=== PATIENT | male | born 1950 | race Caucasian/White ===

== ENCOUNTER → 2022-02-11 07:09 | Outpatient (CLI) | payer MEDICARE, SELFPAY ==
--- NOTE | ~2022-02-11 | XR_ITS ---
XR chest 2V DATE: 02/11/2022 07:27 INDICATION: Chest pain TECHNIQUE: PA and lateral views COMPARISON: 08/16/2006 portable AP chest FINDINGS: Normal heart size. No hilar or mediastinal enlargement. No pulmonary infiltrate or consolid ation, pleural effusion or pulmonary vascular congestion or pneumothorax. Double density at the lower left retrocardiac area, possibly due to hiatal hernia. Degenerative spurring of the thoracic spine. IMPRESSION: No active cardiopulmonary disease Reviewed, dictated and finalized at location A.
== END ==
PROVIDERS: PCP Family Medicine; Visit Provider Family Medicine
DX: R07.9 Chest pain, unspecified (principal)
CPT/HCPCS: 71046

== ENCOUNTER 2023-04-27 10:27 | Outpatient (CLI) | payer MEDICARE, SELFPAY | END 2023-04-27 10:28 | disposition home or self-care (01) | PROVIDERS: PCP Emergency Medicine; Visit Provider Emergency Medicine | DX: Z79.899 Other long term (current) drug therapy (principal) | CPT/HCPCS: 36415; 82607 ==

== ENCOUNTER → 2023-04-27 10:36 | Outpatient (CLI) | payer MEDICARE, SELFPAY ==
--- NOTE | ~2023-04-27 | XR_ITS ---
Left Knee Technique: AP, lateral, and sunrise views were obtained. Clinical History: Swelling Findings: No fracture or dislocation is seen. Osseous alignment is anatomic. Joint spaces are preserv ed. There are multiple loose bodies in the suprapatellar region.. Possible small joint effusion and/o r thickening of the distal quadriceps tendon, with possible enthesopathic change. There is mild degen erative change of the patellofemoral compartment. Impression: Multiple probable loose bodies at the suprapatellar pouch region with small joint effusion and/or thi ckening of the distal quadriceps tendon. Mild degenerative change of the patellofemoral compartment. Reviewed, dictated and finalized at location . Impression: Multiple probable loose bodies at the suprapatellar pouch region with small crystal nt effusion and/or thickening of the distal quadriceps tendon. Mild degenerative change of the patellofemoral compartment.
--- NOTE | ~2023-04-27 | XR_ITS ---
Right Knee Technique: AP, lateral, and sunrise views were obtained. Clinical History: Swelling Findings: No fracture or dislocation is seen. Osseous alignment is anatomic. Suggestion of multiple l oose bodies in the suprapatellar region versus possibly bipartite patella. There is probable thickeni ng of the distal quadriceps tendon. There is minimal degenerative change of the patellofemoral compar tment. No joint effusion is seen. Impression: Probable multiple loose bodies in the suprapatellar region with thickening of the distal quadriceps t endon and minimal degenerative change of the patellofemoral compartment. Bipartite patella is less likely given the overall appearance. Reviewed, dictated and finalized at location M. Impression: Probable multiple loose bodies in the suprapatellar region with thickening of t he distal quadriceps tendon and minimal degenerative change of the patellofemor al compartment. Bipartite patella is less likely given the overall appearance.
== END ==
PROVIDERS: PCP Emergency Medicine; Visit Provider Emergency Medicine
DX: M79.89 Other specified soft tissue disorders (principal); M25.561 Pain in right knee; M25.562 Pain in left knee
CPT/HCPCS: 73564

== ENCOUNTER → 2023-05-07 13:39 | Outpatient (CLI) | payer MEDICARE, SELFPAY ==
--- NOTE | ~2023-05-07 | MR_ITS ---
EXAMINATION: MR knee RT wo/w con DATE: 05/07/2023 15:34 INDICATION: Right knee pain and prior repair of a torn quadriceps tendon. TECHNIQUE: Magnetic resonance imaging (MRI) of the right knee was performed without intravenous contr ast. Sequences included coronal PD-weighted FSE, coronal PD-weighted FS FSE, sagittal T2-weighted FS E, sagittal PD-weighted FS FSE, axial PD weighted FS FSE, axial T1-weighted FSE, axial T1-weighted FS FSE and postcontrast axial, sagittal and coronal T1-weighted FS FSE. COMPARISON: None. FINDINGS: Medial compartment: Medial meniscus is normal. Deep chondral fissuring with underlying cortical irregularity and subartic ular edema-like marrow signal change and enhancement at the lateral side of the anterior weightbearin g medial femoral condyle. Remaining cartilage in the medial compartment is normal. Lateral compartment: Lateral meniscus is normal. Articular cartilage is normal. Patellofemoral compartment: Partial thickness chondral ulceration and deep fissuring with underlying cortical irregularity and ed isaias-like and enhancing marrow signal change extending across the cephalad aspect of the lateral troch saurav. Near full-thickness chondral fissure without degenerative subchondral changes extending obliquel y across the cartilage at the central aspect of the apical ridge. Less severe partial thickness chond ral fissuring without degenerative subchondral changes along the cephalad aspect of the medial and la teral patellar facets. Ligaments and tendons: Anterior and posterior cruciate ligaments are normal. The medial collateral ligament and fibular corry ateral ligament complex are normal. Mild proximal patellar tendinopathy without discrete tear. Postop erative change at the patella and distal quadriceps tendon consistent with reported history of prior quadriceps tendon tear and subsequent repair. Small amount of heterotopic patellar bone formation at the entry sites of suture anchor tracks extending from proximal to distal across the patella. Additio nal heterotopic ossification is seen situated between the suprapatellar pouch in the deep margin of t he distal quadriceps tendon. Moderate tendinopathy of the distal quadriceps tendon which appears thic kened and with some disorganization of the normally well-defined striated pattern to the tendon fiber s. The repair however appears intact with no evident fluid signal intensity tear defect or retracted tear margin. The visualized medial and lateral hamstring tendons as well as the iliotibial band are normal. Fluid: Physiologic amount of fluid in the joint space. No loose osteochondral bodies identified. Osseous/other: Bone alignment is normal. No fracture or pathologic marrow replacing process. IMPRESSION: 1. Moderate quadriceps tendinopathy with intact appearing repair of a reported quadriceps tendon tear at its patellar insertion. 2. Mild medial and patellofemoral osteoarthritis, each with regions of high-grade chondromalacia. Reviewed, dictated and finalized at location A. IMPRESSION: 1. Moderate quadriceps tendinopathy with intact appearing repair of a reported quadriceps tendon tear at its patellar insertion. 2. Mild medial and patellofemoral osteoarthritis, each with regions of high-gra de chondromalacia.
--- NOTE | ~2023-05-07 | MR_ITS ---
EXAMINATION: MR knee LT wo/w con DATE: 05/07/2023 15:34 INDICATION: Left knee pain and prior quadriceps tendon rupture and repair. TECHNIQUE: Magnetic resonance imaging (MRI) of the left knee was performed without intravenous contra st. Sequences included coronal PD-weighted FSE, coronal PD-weighted FS FSE, sagittal T2-weighted FSE , sagittal PD-weighted FS FSE, axial PD weighted FS FSE, axial T1-weighted FSE, axial T1-weighted FS FSE and postcontrast axial, sagittal and coronal T1-weighted FS FSE. COMPARISON: Left knee radiographs dated 04/27/2023 FINDINGS: Medial compartment: Medial meniscus is normal. Deep chondral fissuring with underlying cortical irregularity and subartic ular edema-like marrow signal change and enhancement at the lateral side of the anterior weightbearin g medial femoral condyle. The remaining cartilage in the medial compartment is normal. Lateral compartment: Lateral meniscus is normal. Articular cartilage is normal. Patellofemoral compartment: Partial thickness chondral ulceration and deep fissuring with underlying subarticular cystlike and ed isaias-like and enhancing marrow signal change at the superolateral aspect of the lateral trochlea. Ther e is partial thickness chondral fissuring without degenerative subchondral changes along the cephalad aspect of the medial and lateral patellar facets. Ligaments and tendons: Anterior and posterior cruciate ligaments are normal. The medial collateral ligament and fibular corry ateral ligament complex are normal. Mild tendinopathy without discrete tear at the medial side of the proximal patellar tendon. Postoperative change at the patella and distal quadriceps tendon consisten t with reported history of prior quadriceps tendon tear and subsequent repair. Small amount of hetero topic patellar bone formation at the entry sites of suture anchor tracks extending from proximal to d istal across the patella. Moderate tendinopathy of the distal quadriceps tendon which appears thicken ed and with some disorganization of the normally well-defined striated pattern to the tendon fibers. The repair however appears intact with no evident fluid signal intensity tear defect or retracted tea r margin. Some additional heterotopic ossification within the vastus lateralis contribution to the te ndon. The visualized medial and lateral hamstring tendons as well as the iliotibial band are normal. Fluid: Physiologic amount of fluid in the joint space. No loose osteochondral bodies identified. Osseous/other: Bone alignment is normal. No fracture or pathologic marrow replacing process. IMPRESSION: 1. Moderate quadriceps tendinopathy with intact appearing repair of a reported quadriceps tendon tear at its patellar insertion. 2. Mild medial and patellofemoral osteoarthritis, each with regions of high-grade chondromalacia. Reviewed, dictated and finalized at location A. IMPRESSION: 1. Moderate quadriceps tendinopathy with intact appearing repair of a reported quadriceps tendon tear at its patellar insertion. 2. Mild medial and patellofemoral osteoarthritis, each with regions of high-gra de chondromalacia.
== END ==
PROVIDERS: PCP Emergency Medicine; Visit Provider Emergency Medicine
DX: M23.41 Loose body in knee, right knee (principal); M23.42 Loose body in knee, left knee; M17.0 Bilateral primary osteoarthritis of knee
CPT/HCPCS: 73723; A9577

== ENCOUNTER 2023-10-23 08:14 | Outpatient (CLI) | payer MEDICARE, SELFPAY ==
--- NOTE | ~2023-10-23 | US_ITS ---
EXAMINATION: US arterial ankle brachial ind DATE: 10/23/2023 09:05 INDICATION: Other specified symptoms and signs involving the circulatory system. Cold toes. Lower hanks b pain and swelling. TECHNIQUE: Segmental pressures and plethysmographic and Doppler waveforms of the brachial and lower e xtremity arteries were obtained. COMPARISON: None. FINDINGS: Right and left brachial artery pressures of 133 mm Hg and 125 mm Hg, respectively, are concordant (no rmal difference <= 30 mmHg). The right ankle-brachial index (NATHANAEL) is 1.24 (normal >= 0.9-1.0). The right great toe-brachial index (TBI) is 0.96 (normal >= 0.65). Arterial Doppler waveforms are biphasic with brisk systolic upstrokes at both right posterior tibial and dorsalis pedis arteries. The left NATHANAEL is 1.21. The left TBI is 0.77. Arterial Doppler waveforms are biphasic with brisk systol ic upstrokes at both left posterior tibial and dorsalis pedis arteries. IMPRESSION: 1. No significant arterial occlusive disease to the bilateral lower limbs with normal bilateral ABIs and TBIs. Reviewed, dictated and finalized at location A. Y BACTERIOLOGIST
== END 2023-10-23 08:15 | disposition home or self-care (01) ==
LOC: ANHIMG 08:17
PROVIDERS: PCP Emergency Medicine; Visit Provider Emergency Medicine
DX: R09.89 Other specified symptoms and signs involving the circulatory and respiratory systems (principal)
CPT/HCPCS: 93922

== ENCOUNTER 2023-11-18 08:45 | Outpatient (CLI) | payer MEDICARE, SELFPAY ==
--- NOTE | 2023-11-18 11:30 | NEURO_ITS ---
Impression: # Non-diabetic complains of numbness and weakness in lower extremities. History of neck and lower back surgery. # Severe motor/sensory neuropathy. # Needle/EMG exam revealed significant neurogenic changes in the muscles. # Clinical correlation recommended. Nerve Conduction Studies Anti Sensory Summary Table Stim Site NR Peak (ms) P-T Amp (?V) Site1 Site2 Delta-P (ms) Dist (cm) Jean (m/s) Left Saphenous Anti Sensory (Ant Med Mall) NO RESPONSE 14cm NR 14cm Ant Med Mall 0.0 Right Saphenous Anti Sensory (Ant Med Mall) NO RESPONSE 14cm NR 14cm Ant Med Mall 0.0 Left Sup Fibular Anti Sensory (Ant Lat Mall) NO RESPONSE 14 cm NR 14 cm Ant Lat Mall 16.0 Right Sup Fibular Anti Sensory (Ant Lat Mall) NO RESPONSE 14 cm NR 14 cm Ant Lat Mall 16.0 Left Sural Anti Sensory (Lat Mall) NO RESPONSE Calf NR Calf Lat Mall 16.0 Right Sural Anti Sensory (Lat Mall) NO RESPONSE Calf NR Calf Lat Mall 16.0 Motor Summary Table Stim Site NR Onset (ms) O-P Amp (mV) Site1 Site2 Delta-0 (ms) Dist (cm) Jean (m/s) Left Peroneal Motor (Vastus Med) Ankle 4.5 0.6 Popit Ankle 12.5 44.0 35 Popit 17.0 1.0 Right Peroneal Motor (Vastus Med) Ankle 4.6 0.8 Popit Ankle 12.0 40.0 33 Popit 16.6 0.6 Left Tibial Motor (Abd Eduardo Brev) Ankle 5.2 0.1 Knee Ankle 12.3 42.0 34 Knee 17.5 0.1 Right Tibial Motor (Abd Eduardo Brev) NO RESPONSE Ankle NR Knee NR F Wave Studies NR F-Lat (ms) L-R F-Lat (ms) Left Peroneal (Mrkrs) (EDB) NO RESPONSE NR Right Peroneal (Mrkrs) (EDB) 68.30 Left Tibial (Mrkrs) (Abd Hallucis) NO RESPONSE NR Right Tibial (Mrkrs) (Abd Hallucis) NO RESPONSE NR EMG Side Muscle Nerve Root Ins Act Fibs Amp Dur Recrt Comment Right AntTibialis Dp Br Fibular L4-5 Nml Nml Nml >12ms +3 Right Gastroc Tibial S1-2 Nml Nml Nml >12ms +3 Right Fibularis Long Sup Br Fibular L5-S1 Nml Nml Nml >12ms +3 Right Flex Dig Long Tibial L5-S2 Nml Nml Nml >12ms +3 Right Ext Dig Brev Dp Br Fibular L5, S1 Nml Nml Nml >12ms +4 Left AntTibialis Dp Br Fibular L4-5 Nml Nml Nml >12ms +3 Left Gastroc Tibial S1-2 Nml Nml Nml >12ms +3 Left Fibularis Long Sup Br Fibular L5-S1 Nml Nml Nml >12ms +3 Left Flex Dig Long Tibial L5-S2 Nml Nml Nml >12ms +3 Left Ext Dig Brev Dp Br Fibular L5, S1 Nml Nml Nml >12ms +4 Right Ext Dig Long Dp Br Fibular L5-S1 Nml Nml Nml >12ms +3 Left Ext Dig Long Dp Br Fibular L5-S1 Nml Nml Nml >12ms +3 MTDD
== END 2023-11-18 08:46 | disposition home or self-care (01) ==
LOC: ANHNEURO 08:49
PROVIDERS: PCP Emergency Medicine; Visit Provider Emergency Medicine
DX: R20.2 Paresthesia of skin (principal)
CPT/HCPCS: 95886; 95911

== ENCOUNTER 2023-11-26 07:49 | Outpatient (CLI) | payer MEDICARE, SELFPAY ==
--- NOTE | ~2023-11-26 | MR_ITS ---
EXAMINATION: MR lumbar spine wo con DATE: 11/26/2023 08:22 INDICATION: Polyneuropathy, unspecified. Low back pain. TECHNIQUE: Magnetic resonance imaging (MRI) of the lumbar spine was performed without intravenous con trast. COMPARISON: Lumbar spine MRI 04/10/2018 FINDINGS: S1 is a transitional segment. There is 7 degrees dextrocurvature of lower lumbar spine. The re is mild chronic anterior wedging of T12, L1, and L2 vertebral bodies. There are changes of posteri or fusion procedure from L4 to S1 with pedicle screws. There is mildly decreased disc height at L2-L3 and L3-L4. There is severely decreased disc height at L4-L5 and L5-S1 with interbody fusion. The dis pankaj spinal cord signal intensity is normal. The conus medullaris is at L1-L2. The following disc leve ls are specifically discussed: L1-L2: The disc is bulging. There is mild bilateral facet joint osteoarthritis. There is mild bilater al neural foraminal stenosis. There is mild central canal stenosis. L2-L3: The disc is bulging and has an annular fissure. There is severe bilateral facet joint osteoart hritis. There is mild bilateral neural foraminal stenosis. There is mild central canal stenosis. L3-L4: The disc is bulging. There is moderate bilateral facet joint osteoarthritis. There is moderate bilateral neural foraminal stenosis. There is severe central canal stenosis. L4-L5: The disc does not extend beyond the endplate margin. There is moderate bilateral facet joint h ypertrophy. There is moderate bilateral neural foraminal stenosis. There is no central canal stenosis . L5-S1: The disc is bulging. There is moderate bilateral facet joint hypertrophy. There is moderate ri ght and mild left neural foraminal stenosis. There is mild central canal stenosis with posterior deco mpression. IMPRESSION: 1. Moderate lumbar spondylosis. 2. Posterior fusion procedure from L4 to S1. Reviewed, dictated and finalized at location A.
== END 2023-11-26 07:50 ==
LOC: MICIMG 07:50
PROVIDERS: PCP Emergency Medicine; Visit Provider Emergency Medicine
DX: M43.06 Spondylolysis, lumbar region (principal); Z98.1 Arthrodesis status
CPT/HCPCS: 72148

== ENCOUNTER 2023-12-03 07:13 | Day surgery (SDC) | payer MEDICARE, SELFPAY ==
[2023-11-03 10:58] VITALS: BMI 29.4
[2023-11-17 08:40] VITALS: BMI 28.6
[2023-12-03 07:48] VITALS: BP 132/85; PULSE 63; RESP 14; TEMP 36.7; O2SAT 98
[2023-12-03] MEDS: LACTATED RINGERS 1,000 ML 150 ML IV CONT (07:53)
[2023-12-03 07:55] LABS: Glucose Point of Care 110 mg/dl (65-105)
--- NOTE | 2023-12-03 08:09 | PM.HPGS ---
History of Present Illness History of Present Illness Consent: Risks, benefits, and alternatives have been discussed and questions answered. Patient agrees to proceed with procedure. Chief complaint: Neoplasm Screening Narrative: Marbin Balderrama is a 73 year old male presents for screening colonoscopy. Patient's current weight appetite and bowel movements are normal. He denies abdominal pain. Patient has had no bleeding. Family history is noncontributory. Previous colonoscopy 10 years ago was unremarkable. Review of Systems Review of Systems: All systems reviewed & are unremarkable except as noted in HPI and below PMFSH Past Medical History Medical History (Updated 12/03/23 @ 08:11 by Carlo Lee MD) Low back pain Surgical History Surgical History H/O spinal fusion Family History Family History Father Family history of type 2 diabetes mellitus Other Family history of malignant neoplasm of stomach Social History Social History Smoking status: Never smoker Alcohol intake: never Substance use: never Substance use type: does not use Lack of Transportation: No Lack of Food: Never True Current Housing: I Have Housing Concerned About Future Housing: No Difficulty Paying Gas/Electric Bills: No Difficulty Paying for Meds: No Currently Unemployed: No Education: Associate Degree Difficulty w/ Childcare or Family Care: No Living arrangements: with family Spiritual care concerns: No Meds Home Medications and Allergies Home Medications Medication Instructions Recorded Confirmed Type metformin 500 mg tablet 500 mg PO DAILY 07/27/19 12/03/23 History famotidine 20 mg tablet 20 mg PO DAILY #90 tabs 10/15/21 12/03/23 Rx sildenafil 50 mg tablet (Viagra) 50 mg PO DAILY PRN sexual activity 04/27/23 12/03/23 Rx #30 tabs simvastatin 20 mg tablet See Rx Instructions .Route 08/12/23 12/03/23 Rx .COMPLEX #90 tabs irbesartan 75 mg tablet 75 mg PO DAILY #90 tabs 09/01/23 12/03/23 Rx topiramate 25 mg tablet See Rx Instructions .Route 09/11/23 12/03/23 Rx .COMPLEX #180 tabs cranberry extract 500 mg tablet 500 mg PO BID 10/20/23 12/03/23 History melatonin 10 mg capsule 10 mg PO QHS 10/20/23 12/03/23 History saw palmetto 450 mg capsule 450 mg PO BID 10/20/23 12/03/23 History cyanocobalamin (vitamin B-12) 2,000 mcg PO DAILY 11/17/23 12/03/23 History 2,000 mcg tablet pyridoxine (vitamin B6) 100 mg 300 mg PO DAILY 11/17/23 12/03/23 History tablet Allergies Allergy/AdvReac Type Severity Reaction Status Date / Time No Known Allergies Allergy Mild Verified 12/03/23 07:40 Vital Signs Vital Signs - 24 hr 12/03/23 07:48 Temperature 98.0 F Pulse Rate 63 Respiratory Rate 14 Blood Pressure 132/85 Pulse Oximetry 98 Oxygen Delivery Room Air Exam Narrative: Physical exam reveals patient to be alert. Vital signs stable. HEENT exam is unremarkable. Patient is anicteric. Lungs are clear to auscultation and percussion. Is without murmur or extra sounds. Abdomen bowel sounds are present soft nontender with no organomegaly. Digital external rectal exam is normal. Assessment and Plan Assessment and plan (1) Encounter for screening colonoscopy: Code(s): Z12.11 - Encounter for screening for malignant neoplasm of colon Status: Acute Assessment and Plan: Patient presents today for screening colonoscopy. He appears to be at average risk for colon polyps.
--- NOTE | 2023-12-03 08:15 | WPDANESEPPF ---
Anes - Initial Pre Proc Eval Procedure: Operation Date: 12/03/23 09:00 Proposed Procedures p Screening Colonoscopy - Carlo Lee MD Date/Time: 12/03/23 08:15 Surgeon: Carlo Lee MD Pre Op Diagnosis: Neoplasm Screening Patient Data Age: 73 Gender: M Height: 1.78 m Weight: 92.25 kg Last Vital Signs Temp 36.7 C 12/03/23 07:48 Pulse 63 12/03/23 07:48 Resp 14 12/03/23 07:48 BP 132/85 12/03/23 07:48 Pulse Ox 98 12/03/23 07:48 O2 Del Method Room Air 12/03/23 07:48 Allergies Allergy/AdvReac Type Severity Reaction Status Date / Time No Known Allergies Allergy Mild Verified 12/03/23 07:40 Home Medications Medication Instructions Recorded Confirmed Type metformin 500 mg tablet 500 mg PO DAILY 07/27/19 12/03/23 History famotidine 20 mg tablet 20 mg PO DAILY #90 tabs 10/15/21 12/03/23 Rx sildenafil 50 mg tablet (Viagra) 50 mg PO DAILY PRN sexual activity 04/27/23 12/03/23 Rx #30 tabs simvastatin 20 mg tablet See Rx Instructions .Route 08/12/23 12/03/23 Rx .COMPLEX #90 tabs irbesartan 75 mg tablet 75 mg PO DAILY #90 tabs 09/01/23 12/03/23 Rx topiramate 25 mg tablet See Rx Instructions .Route 09/11/23 12/03/23 Rx .COMPLEX #180 tabs cranberry extract 500 mg tablet 500 mg PO BID 10/20/23 12/03/23 History melatonin 10 mg capsule 10 mg PO QHS 10/20/23 12/03/23 History saw palmetto 450 mg capsule 450 mg PO BID 10/20/23 12/03/23 History cyanocobalamin (vitamin B-12) 2,000 mcg PO DAILY 11/17/23 12/03/23 History 2,000 mcg tablet pyridoxine (vitamin B6) 100 mg 300 mg PO DAILY 11/17/23 12/03/23 History tablet Laboratory Tests 12/03/23 07:52 POC Capillary Glucose 110 H mg/dl (65-105) Patient hx anesthesia problems: none Family hx anesthesia problems: none Results Review: All pre-operative results and documents have been reviewed as part of the pre-operative evaluation. [facility] Past Medical History Medical History Low back pain Surgical History Surgical History H/O spinal fusion Family History Family History Father Family history of type 2 diabetes mellitus Other Family history of malignant neoplasm of stomach Social History Social History Smoking status: Never smoker Alcohol intake: never Substance use: never Substance use type: does not use Lack of Transportation: No Lack of Food: Never True Current Housing: I Have Housing Concerned About Future Housing: No Difficulty Paying Gas/Electric Bills: No Difficulty Paying for Meds: No Currently Unemployed: No Education: Associate Degree Difficulty w/ Childcare or Family Care: No Living arrangements: with family Spiritual care concerns: No Anes - Eval Final PreProcedure Day of Procedure 12/03/23 08:15 Patient weight: overweight Heart: regular rate and rhythm Lungs: clear to auscultation Airway: Mallampati scale class II Neurological: alert and oriented Last oral intake: >/= 8 hours ASA classification: III Emergent: no Anesthetic plan: proceed Anesthesia type and monitoring: general GIVS and standard monitoring Results Review: All pre-operative results and documents have been reviewed as part of the pre-operative evaluation. Informed Consent: The patient's anesthetic plan and its attendant risks and benefits were discussed with the patient/family/POA. Questions were solicited and answers provided to the satisfaction of the patient/family/POA.
[2023-12-03 08:58] VITALS: BP 113/95; PULSE 56; RESP 15; O2SAT 95
[2023-12-03 09:08] VITALS: BP 123/73; PULSE 51; RESP 15; O2SAT 99
[2023-12-03 09:18] VITALS: BP 129/85; PULSE 50; RESP 15; O2SAT 99
--- NOTE | 2023-12-03 09:28 | WPDANESPN ---
Anes - Prog Note Post-Op Date/Time: 12/03/23 09:28 Cardiovascular status: normal Respiratory status: normal Airway patency: baseline Mental status: baseline Post-Op hydration status: normal Vital Signs: Last Vital Signs Temp 36.7 C 12/03/23 07:48 Pulse 51 L 12/03/23 09:08 Resp 15 12/03/23 09:08 BP 123/73 12/03/23 09:08 Pulse Ox 99 12/03/23 09:08 O2 Del Method Room Air 12/03/23 09:08 Pain Score (VAS): 0 I/O: Intake & Output 12/02/23 12/03/23 12/03/23 23:59 07:59 15:59 Intake Total 500 Balance 500 12/03/23 07:52 POC Capillary Glucose 110 H Patient Feedback: Patient satisfied with anesthetic care.
== END 2023-12-03 09:43 | disposition home or self-care (01) ==
PROVIDERS: PCP Emergency Medicine; Visit Provider Internal Medicine Gastroenterology
PROC: 0DJD8ZZ Inspection of Lower Intestinal Tract, Via Natural or Artificial Opening Endoscopic (ICD-10-PCS; CPT 45378; principal; 2023-12-03 09:00)
DX: Z12.11 Encounter for screening for malignant neoplasm of colon (principal); D12.3 Benign neoplasm of transverse colon; K57.30 Diverticulosis of large intestine without perforation or abscess without bleeding; K64.8 Other hemorrhoids
CPT/HCPCS: 45385

== ENCOUNTER 2023-12-03 08:09 | Outpatient (NON) | payer MEDICARE, SELFPAY | END 2023-12-03 08:10 | disposition home or self-care (01) | PROVIDERS: PCP Emergency Medicine; Visit Provider Internal Medicine Gastroenterology | DX: Z12.11 Encounter for screening for malignant neoplasm of colon (principal) | CPT/HCPCS: 88305 ==

== ENCOUNTER 2024-02-23 08:56 | Outpatient (CLI) | payer MEDICARE, SELFPAY ==
[2024-02-23 13:37] LABS: Vitamin B12 > 1000.0 pg/mL (239-931)
[2024-02-23 14:07] LABS: Free T4 Free Thyroxine 1.39 ng/mL (0.78-2.19)
[2024-02-24 08:04] LABS: Triiodothyronine T3 Free 3.9 pg/mL (2.3-4.2)
[2024-02-24 11:29] LABS: Protein, Total 6.8 g/dL (6.1-8.1)
[2024-02-24 15:29] LABS: Albumin 4.2 g/dL (3.8-4.8); Alpha 1 Globulin 0.2 g/dL (0.2-0.3); Alpha 2 Globulin 0.7 g/dL (0.5-0.9); Beta 1 Globulin 0.5 g/dL (0.4-0.6); Gamma Globulin 0.8 g/dL (0.8-1.7)
[2024-02-24 22:58] LABS: Red Blood Cell Folate 494 ng/mL RBC (>280)
[2024-02-26 10:53] LABS: Vitamin B6 111.7 ng/mL (2.1-21.7)
[2024-02-26 13:24] LABS: Methylmalonic Acid 137 nmol/L (69-390)
[2024-02-26 15:29] LABS: Vitamin B1 17 nmol/L (8-30)
[2024-02-26 21:43] LABS: Vitamin D 1,25 (OH)2 Total 37 pg/mL (18-72); Vitamin D2 1,25 (OH)2 <8 pg/mL; Vitamin D3 1,25 (OH)2 37 pg/mL
[2024-02-27 20:22] LABS: Immunofixation, Serum Normal pattern.
== END 2024-02-23 08:57 | disposition home or self-care (01) ==
PROVIDERS: PCP Emergency Medicine; Visit Provider Psychiatry & Neurology Neurology
DX: E55.9 Vitamin D deficiency, unspecified (principal); G62.9 Polyneuropathy, unspecified; E74.39 Other disorders of intestinal carbohydrate absorption; Z98.890 Other specified postprocedural states; Z79.899 Other long term (current) drug therapy
CPT/HCPCS: 36415; 82607; 82652; 82747; 83921; 84155; 84165; 84207; 84425; 84439; 84443; 84481; 86038; 86039; 86334

== ENCOUNTER 2024-03-08 09:30 | Outpatient (RCR) | payer MEDICARE, SELFPAY ==
--- NOTE | 2024-02-05 12:39 | OPREHPOC ---
Outpatient Therapy Plan of Care This is a Multidisciplinary Plan of Care that may contain components documented by all disciplines (PT, OT, and ST.) PT Problem 1 PT Problem #1 Knowledge Deficit PT Goal 1 Goal [place] with HEP Target Visit 4 PT Problem 2 PT Problem #2 Impaired Strength PT Goal 1 Goal Improve L shoulder flexion strength to 4+/5 to improve active lifting and ADL performance Target Visit 8 PT Goal 2 Goal Improve L shoulder external rotation strength to 4 +/5 to improve shoulder stability Target Visit 8 PT Goal 1 Goal Demonstrate ability to perform overhead lift of 5# without increased pain for functional lifting performance Target Visit 8
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
--- NOTE | 2024-02-24 09:43 | PCPTNOTE ---
Patient canceled due to being out of town.
--- NOTE | 2024-03-08 10:13 | OPREHPOC ---
Outpatient Therapy Plan of Care This is a Multidisciplinary Plan of Care that may contain components documented by all disciplines (PT, OT, and ST.) PT Problem 1 PT Problem #1 Knowledge Deficit PT Goal 1 Goal [place] with HEP Target Visit 4 Progress Met PT Problem 2 PT Problem #2 Impaired Strength PT Goal 1 Goal Improve L shoulder flexion strength to 4+/5 to improve active lifting and ADL performance Target Visit 8 Progress Partially Met PT Goal 2 Goal Improve L shoulder external rotation strength to 4 +/5 to improve shoulder stability Target Visit 8 Progress Met PT Goal 1 Goal Demonstrate ability to perform overhead lift of 5# without increased pain for functional lifting performance Target Visit 8 Progress Met
--- NOTE | 2024-03-08 10:13 | PTOPDC ---
Assessment and note entered by Yg Castaneda, PT Evaluation Information Assessment Status Discharge Diagnosis Left shoulder arthropathy Onset December 2023 Subjective Information Reports that overall he is doing significantly better. He is not having the tenderness or the difficulty reaching he had. The only real issues that he is having is that he is still getting pain with non anticipated jarring of the shoulder. He has been consistently doing his band exercises and has been avoiding anything that causes discomfort . Feels he is aware f when his shoulder is bothering him and he does not push through pain. Reported Pain Level Pain Score 0: Self Report Assessment PT Clinical Summary Patient has met all goals for therapy at this time and he is suitable for discharge to [facility] at this time. He has had some weakness but is on the trajectory to continue to improve this. Plan of Care PT Services Indicated D/C to [facility]
== END 2024-03-08 10:51 | disposition home or self-care (01) ==
LOC: ANHGOSHPT 09:30
PROVIDERS: PCP Emergency Medicine; Visit Provider Emergency Medicine
DX: M12.812 Other specific arthropathies, not elsewhere classified, left shoulder (principal)
CPT/HCPCS: 97110; 97140; 97161; 97530

== ENCOUNTER 2024-09-28 08:00 | Outpatient (CLI) | payer MEDICARE, SELFPAY ==
--- OUTSIDE RECORDS SUMMARY | 2024-09-28 08:09 | XMS_ITS | Clinical Summary ---
Author Organization [facility] Address [address] [place] [address] Care Team Providers Care Nephrologist Name Role Phone Megha Peoples MD Primary Care Provider [phone] Allergies Active Allergy Reactions Criticality Noted Date Comments Lisinopril Cough Low 10/08/2018 Medications irbesartan-hydr ochlorothiazide (AVALIDE) 150-12.5 mg per tablet TK 1 T PO QD, AM for HTN 5 01/26/2018 Active simvastatin (ZOCOR) 20 mg tabletIndicatio ns:hyperlipidem ia Take 1 tablet (20 mg total) by mouth nightly Active sildenafil, antihypertensiv e, (REVATIO) 20 mg tablet Take 1 tablet (20 mg total) by mouth every morning Active topiramate (TOPAMAX) 25 mg tablet TK 1 T PO BID 08/28/2019 Active phentermine (ADIPEX-P) 37.5 mg tablet 08/12/2019 Active tadalafiL (CIALIS) 20 mg tablet 12/18/2023 Active sodium, potassium & mag sulfates (SUPREP BOWEL KIT) 17.5-3.13-1.6 gram recon soln 11/27/2023 Act susan irbesartan (AVAPRO) 75 mg tablet 11/19/2023 Active Active Problems Problem Noted Date Diagnosed Date Hypertension 10/27/2018 Hyperlipemia 10/27/2018 Type 2 diabetes mellitus 10/27/2018 Pre-operative cardiovascular examination 019 Spinal stenosis of lumbar re gion with neurogenic claudication 09/14/2018 Orthopedic aftercare 11/06/2017 Surgical History Surgery Date Site/Laterality Comments QUADRICEPS REPAIR 08/31/2017 - 08/30/2018 KIDNEY STONE SURGERY 08/31/2009 - 08/30/2010 FL UPPER GI AIR CONTRAST W KUB 05/14/2018 Bilateral FL UPPER GI AIR CONTRAST W KUB 06/14/2018 Left COLONOSCOPY Medical History Medical History Date Comments Hypertension Kidney stone Peptic ulceration Family History Medical History Relation Name Comments Cancer Mother Cancer Other Family history of malignant neoplasm - (Added by TW Conv) Relation Name Status Comments Mother Other Social History Tobacco Use Types Packs/Day Years Used Date Smoking Tobacco: Never Smokeless Tobacco: Never Tobacco Cessation:Counseling Given: Not Answered Alcohol Use Standard Drinks/Week Comments No 0 (1 standard drink = 0.6 oz pur e alcohol) Sex and Gender Information Value Date Recorded Sex Assigned at Not on file Legal Sex Male 6:46 AM CATALYTIC CONVERTER OPERATOR Gender Identity Male 12/16/2018 1:16 PM CDT Sexual Orientation Straight 12/16/2018 1: 16 PM CDT Obstetrics History Last Filed Vital Signs Vital Sign Reading Time Taken Comments Blood Pressure 152/79 11/02/2018 11:10 AM CATALYTIC CONVERTER OPERATOR Pulse 66 11/02/2018 11:10 AM CATALYTIC CONVERTER OPERATOR Temperature 37.3 ??C (99.1 ??F) 11/02/2018 7:24 AM CS T Respiratory Rate 18 11/02/2018 11:10 AM CATALYTIC CONVERTER OPERATOR Oxygen Saturation 93% 11/02/2018 11:10 AM CATALYTIC CONVERTER OPERATOR Inhaled Oxygen Concentration - - Weight 95.3 kg (210 lb) 01/20/2024 1:01 PM CDT Height 177.8 cm (5' 10 ) 01/20/2024 1:01 PM CDT Body Mass Index 30.13 01/20/2024 1:01 PM CDT Plan of Treatment Health Maintenance Due Date Last Done Comments Albumin Creatinine Ratio, Urine 1950 Colon Cancer Screening-Colonoscopy 1950 Depression Screening 1951 Fall Risk Assessment 1950 Hepatitis C Screening 1950 eGFR 1950 Dilated Eye Exam 1951 Foot Exam 1950 Pneumococcal vaccine 65+ (1 of 2 - PCV) 1957 DTaP/Tdap/Td Vaccine (1 - Tdap) 1962 Hepatitis B Screening 1969 Well Visit 65+ 2016 Hemoglobin A1C 04/27/2019 10/28/2018 Lipid Panel 10/30/2019 10/29/2018 Covid-19 Vaccine (2 - season) 05/01/202403/2021 Influenza Vaccine (#1) 2024 05/10/2019, 2017 Zoster Vaccine Completed 05/05/2019, 03/01/2019 Medical Devices Implanted Type Area It Security Analyst Device Identifier Shelf Expiration Date Model / Serial / Lot [employer] [id number] - [id number] - [id number] Implanted:Qty: 1 on 10/28/2018 by Evert Shah MD at [facility] N/A: Spine Lumbar [employer] 08/10/2023 [id number] / [id number] / Medtronic Sofamor Danek [id number] Infuse 18mm 26mm Absorbable Sponge Sterile Water Syringe Needle - [id number] Implanted:Qty: 1 on 10/28/2018 by Evert Shah MD at [facility] N/A: Spine Lumbar Medtronic Sofamor Danek 01/29/2019 [id number] / / [id number] Medtronic Sofamor Danek [id number] Mastergraft Matrix Block Extension Void Filler Substitute 10ml - [id number] Implanted:Qty: 1 on 10/28/2018 by Evert Shah MD at [facility] N/A: Spine Lumbar Medtronic Sofamor Danek [id number] / / Medtronic Sofamor Danek [id number] Cd Horizon Break Off Spinal Screw Set Titanium Nonsterile 5.5 Mm - [id number] Implanted:Qty: 6 on 10/28/2018 by Evert Shah MD at [facility] N/A: Spine Lumbar Medtronic Sofamor Danek [id number] / / Medtronic Sofamor Danek [id number] Solera 5.5mm 70mm Curve Omar Spinal Titanium Nonsterile - [id number] Implanted:Qty: 2 on 10/28/2018 by Evert Shah MD at [facility] N/A: Spine Lumbar Medtronic Sofamor Danek [id number] / / Medtronic Sofamor Danek [id number] Solera Cd Horizon 6.5mm 55mm Multiaxial Spine Screw Bone Cocr - [id number] Implanted:Qty: 6 on 10/28/2018 by Evert Shah MD at [facility] N/A: Spine Lumbar Medtronic Sofamor Danek [id number] / / Procedures Procedure Name Priority Date/Time Associated Diagnosis Comments LIPID PANEL Timed 10/29/2018 12:06 AM CATALYTIC CONVERTER OPERATOR HEMOGLOBIN A1C STAT 10/28/2018 5:06 PM CATALYTIC CONVERTER OPERATOR from Last 3 Months or Most Recently Relevant to Health Maintenance Results * (ABNORMAL) Lipid panel (10/29/2018 12:06 AM CATALYTIC CONVERTER OPERATOR) Cholesterol 114 30 - 199 mg/dL [facility] Comment: Interpretive Data Ages < or = 19 years ??Acceptable: ? <170 mg/dL ??Borderline high: ??170-199 mg/dL ??High: ? >or= 200 mg/dL Ages > or = 20 years ??Desirable: ?<200 mg/dL ??Borderline high: ??200-239 mg/dL ??High: ? >or= 240 mg/dL Literature References: 1. Expert Panel on Integrated Guidelines for Cardiovascular Health and Risk Reduction in Children and Adolescents. Pediatrics 2011;128:S213 2. NCEP Expert Panel. Circulation 2004;110:227 Current Interpretive Data was last revised on 2018. Triglycerides 74 <=149 mg/dL [facility] Comment: Interpretive Data Ages < or = 9 years ??Acceptable: ? <75 mg/dL ??Borderline high: ??75-99 mg/dL ??High: ? >or= 100 mg/dL Ages 10 to 20 years ??Acceptable: ? <90 mg/dL ??Borderline high: ??90-129 mg/dL ??High: ? >or= 130 mg/dL Ages > or = 20 years ??Desirable: ?<150 mg/dL ??Borderline high: ??150-199 mg/dL ??High: ? 200-499 mg/dL ?Very high: ?? >or= 499 mg/dL Literature References: 1. Expert Panel on Integrated Guidelines for Cardiovascular Health and Risk Reduction in Children and Adolescents. Pediatrics 2011;128:S213 2. NCEP Expert Panel. Circulation 2004;110:227 Current Interpretive Data was last revised on 2018. HDL 34(L) >=40 mg/dL [facility] Comment: Interpretive Data Ages < or = 19 years ??Acceptable: ? >45 mg/dL ??Borderline low: ?? 40-45 mg/dL ??Low: ? <40 mg/dL Ages > or = 20 years ??Desirable: ?>or= 60 mg/dL ??Low: ? <40 mg/dL Literature References: 1. Expert Panel on Integrated Guidelines for Cardiovascular Health and Risk Reduction in Children and Adolescents. Pediatrics 2011;128:S213 2. NCEP Expert Panel. Circulation 2004;110:227 Current Interpretive Data was last revised on 2018. LDL, calculated 65 <=129 mg/dL [facility] Comment: Interpretive Data Ages < or = 19 years ??Acceptable: ? <110 mg/dL ??Borderline high: ??110-129 mg/dL ??High: ?>or= 130 mg/dL Ages > or = 20 years ??Optimal: ? <100 mg/dL ??Near optimal: ?100-129 mg/dL ??Borderline high: ?? 130-159 mg/dL ??High: ?>160 mg/dL Literature References: 1. Expert Panel on Integrated Guidelines for Cardiovascular Health and Risk Reduction in Children and Adolescents. Pediatrics 2011;128:S213 2. NCEP Expert Panel. Circulation 2004;110:227 Current Interpretive Data was last revised on 2018. Non-HDL Cholesterol 80 mg/dL [facility] Comment: Interpretive Data Ages < or = 19 years ??Acceptable: ?<120 mg/dL ??Borderline high: ??120-144 mg/dL ??High: ?>145 mg/dL Ages > or = 20 years ??When triglycerides are >200 mg/dL, Non-HDL cholesterol is a secondary target of ? therapy with treatment goals that are 30 mg/dL greater than the LDL cholesterol target. ? Literature References: 1. Expert Panel on Integrated Guidelines for Cardiovascular Health and Risk Reduction in Children and Adolescents. Pediatrics 2011;128:S213 2. NCEP Expert Panel. Circulation 2004;110:227 Current Interpretive Data was last revised on 2018. Chol/HDL ratio 3 [facility] Blood specimen (specimen) 10/29/2018 12:06 AM CATALYTIC CONVERTER OPERATOR 10/29/2018 12:18 AM CATALYTIC CONVERTER OPERATOR Narrative [facility] - 10/29/2018 9:46 AM [facility] Evert Shah MD LAB BLOOD ORDERABLES F inal Result [facility] Department [place] [address] * Hemoglobin A1c (10/28/2018 5:06 PM CATALYTIC CONVERTER OPERATOR) [facility] Hgb A1C 5.6 4.0 - 5.6 % [facility] Estimated Average Glucose 114 mg/dL [facility] Comment: The ADA recommends reporting an estimated Average Glucose (eAG) with all Hemoglobin A1c results using the equation derived from a study of 507 normal and diabetic adults. ??Minority populations were underrepresented and children were not included. ?? (Diabetes Care 31:6659-8378, 2008). ??The eAG is not equivalent to a fasting glucose. Blood specimen (specimen) 10/28/2018 5:06 PM CATALYTIC CONVERTER OPERATOR 10/28/2018 5:52 PM CATALYTIC CONVERTER OPERATOR Narrative [facility] - 10/29/2018 5:53 AM CATALYTIC CONVERTER OPERATOR Evert Shah MD LAB BLOOD ORDERABLES F inal Result Performing Organization Address City/State/[facility] Co de Phone Number [facility] Department [place] [address] from Last 3 Months or Most Recently Relevant to Health Maintenance Insurance MEDICARE [employer]UTIONS Member Subscriber Plan / Payer (Ef fective 2017-Present) Name:Marbin Balderrama Relation to Subscriber:Self Name:Marbin Balderrama Payer ID:[id number] (NAIC) Type:[facility] MEDIC[facility] Address: [place] [id number] [place] [id number] MEDICARE SOLUTIONS [facility] CHOICE PLUS MEDICARE SOLUTIONS Advance Directives For more information, please contact: [phone] * Full Code (Latest Code Status on File) Date Activated Date Inactivated Comments 10/28/2018 2:35 PM 11/02/2018 8:10 PM Care Teams Nephrologist Relationship Specialty Start Date End Date Megha Peoples MD [address] [place] [address] PCP - General 10/21/17
--- OUTSIDE RECORDS SUMMARY | 2024-09-28 08:09 | XMS_ITS | Clinical Summary ---
Author Organization [facility] Address [address] [place] [address] Care Team Providers Care Commissioner Of Internal Revenue Name Role Phone Unavailable Primary Care Provider Unavailabl e Immunizations Immunization Administration Dates Next Due Covid-19, Mrna, Lnp-s, Pf, 30 Mcg/0.3 Ml Dose (P fizer) 06/07/2021 Social History Tobacco Use Types Packs/Day Years Used Date Smoking Tobacco: Never Assessed Sex and Gender Information Value Date Recorded Sex Assigned at Not on file Legal Sex Male 4:10 PM CDT Gender Identity Not on file Sexual Orientation Not on file Plan of Treatment Health Maintenance Due Date Last Done Comments Hepatitis C Virus (HCV) Screening 1950 TdaP Immunization 1950 Colonoscopy 1996 Colorectal Cancer Screening 1996 Cologuard 2001 Immunochemical Fecal Occult Blood 2001 Pneumococcal Immunization (5 0+ years) (1 of 1 - PCV) 2001 Influenza Immunization (#1) 05/01/202405/01, 06/15/2018 SARS-COV-2 Immunization ( season) 2024 06/07/2021, 11/03/2020, 10/11/2020 Respiratory Syncytial Virus (RSV) Immunization (Adult) (1 - 1-dose 75+ series) 2026 Zoster Immunization Completed 05/05/2019, 03/01/2019 Hepatitis B Immunization Aged Out No longer eligible based on patient's age to complete this topic Meningococcal Immunization (ACWY) Aged Out No longer eligible b ased on patient's age to complete this topic Rotavirus Immunization Aged Out No lo nger eligible based on patient's age to complete this topic
--- OUTSIDE RECORDS SUMMARY | 2024-09-28 08:09 | XMS_ITS | Referral Summary ---
Author Organization [facility] Address [address] [place] [address] Care Team Providers Care Rim Roller Operator Name Role Phone Megha Peoples MD Primary Care Provider [phone] Allergies Active Allergy Reactions Criticality Noted Date [...] with neurogenic claudication 09/14/2018 Orthopedic aftercare 11/06/2017 Social History Tobacco Use Types Packs/Day Years Used Date Smoking Tobacco: Never Smokeless Tobacco: Never Tobacco Cessation:Counseling Given: Not Answered Alcohol Use Standard Drinks/Week Comments No 0 (1 standard drink = 0.6 oz pur e alcohol) Sex and Gender Information Value Date Recorded Sex Assigned at Not on file Legal Sex Male 6:46 AM PIT RECORDER Gender Identity Male 12/16/2018 1:16 PM CDT Sexual Orientation Straight 12/16/2018 1: 16 PM CDT Last Filed Vital Signs Vital Sign Reading Time Taken Comments Blood Pressure 152/79 11/02/2018 11:10 AM PIT RECORDER Pulse 66 11/02/2018 11:10 AM PIT RECORDER Temperature 37.3 ??C (99.1 ??F) 11/02/2018 7:24 AM CS T Respiratory Rate 18 11/02/2018 11:10 AM PIT RECORDER Oxygen Saturation 93% 11/02/2018 11:10 AM PIT RECORDER Inhaled Oxygen Concentration - - Weight 95.3 kg (210 lb) 01/20/2024 1:01 PM CDT Height 177.8 cm (5' 10 ) 01/20/2024 1:01 PM CDT Body Mass Index 30.13 01/20/2024 1:01 PM CDT Plan of Treatment Not on file Medical Devices Implanted Type Area Garbage Truck Dispatcher Device Identifier Shelf Expiration Date Model / Serial / Lot [employer] [id number] - [id number] - [id number] Implanted:Qty: 1 on 10/28/2018 by Evert Shah MD at [facility] N/A: Spine Lumbar [employer] 08/10/2023 [id number] / Medtronic Sofamor Danek [id number] Infuse 18mm 26mm Absorbable Sponge Sterile Water Syringe Needle - [id number] Implanted:Qty: 1 on 10/28/2018 by Evert Shah MD at [facility] N/A: Spine Lumbar Medtronic Sofamor Danek 01/29/2019 [id number] / / [id number] Medtronic Sofamor Danek [id number] Mastergraft Matrix Block Extension Void Filler Substitute 10ml - [id number] Implanted:Qty: 1 on 10/28/2018 by Evert Shah MD at [facility] N/A: Spine Lumbar Medtronic Sofamor Danek [id number] / / Medtronic Sofamor Danek [id number] Cd Horizon Break Off Spinal Screw Set Titanium Nonsterile 5.5 Mm - [id number] Implanted:Qty: 6 on 10/28/2018 by Evert Shah MD at [facility] N/A: Spine Lumbar Medtronic Sofamor Danek [id number] / / Medtronic Sof[employer]or [employer]anek [id number] Solera 5.5mm 70mm Curve Omar Spinal Titanium Nonsterile - [id number] Implanted:Qty: 2 on 10/28/2018 by Evert Shah MD at [facility] N/A: Spine Lumbar Medtronic Sofamor Danek [id number] / / Medtronic Sofamor Danek [id number] Solera Cd Horizon 6.5mm 55mm Multiaxial Spine Screw Bone Cocr - [id number] Implanted:Qty: 6 on 10/28/2018 by Evert Shah MD at [facility] N/A: Spine Lumbar Medtronic Sofamor Danek [id number] / / Procedures Procedure Name Priority Date/Time Associated Diagnosis Comments LIPID PANEL Timed 10/29/2018 12:06 AM PIT RECORDER HEMOGLOBIN A1C STAT 10/28/2018 5:06 PM PIT RECORDER from Last 3 Months or Most Recently Relevant to Health Maintenance Results * (ABNORMAL) Lipid panel (10/29/2018 12:06 AM PIT RECORDER) Cholesterol 114 30 - 199 mg/dL [facility] Comment: Interpretive Data Ages < or = [...] revised on 2018. Triglycerides 74 <=149 mg/dL [facility] Comment: Interpretive Data Ages < or = [...] on 2018. HDL 34(L) >=40 mg/dL [facility] Comment: Interpretive Data Ages < or = [...] 2018. LDL, calculated 65 <=129 mg/dL [facility] Comment: Interpretive Data Ages < or = [...] revised on 2018. Non-HDL Cholesterol 80 mg/[facility] Comment: Interpretive Data Ages < or = [...] last revised on 2018. Chol/HDL ratio 3 [facility] Blood specimen (specimen) 10/29/2018 12:06 AM PIT RECORDER 10/29/2018 12:18 AM PIT RECORDER Narrative [facility] - 10/29/2018 9:46 AM PIT RECORDER Evert Shah MD LAB BLOOD ORDERABLES F inal Result [facility] Department [place] [address] * Hemoglobin A1c (10/28/2018 5:06 PM PIT RECORDER) Hgb A1C 5.6 4.0 - 5.6 % [facility] Estimated Average Glucose 114 mg/dL [facility] Comment: The ADA recommends reporting an estimated Average Glucose (eAG) with all Hemoglobin A1c results using the equation derived from a study of 507 normal and diabetic adults. ??Minority populations were underrepresented and children were not included. ?? (Diabetes Care 31:0087-3251, 2008). ??The eAG is not equivalent to a fasting glucose. Blood specimen (specimen) 10/28/2018 5:06 PM PIT RECORDER 10/28/2018 5:52 PM PIT RECORDER Narrative [facility] - 10/29/2018 5:53 AM PIT RECORDER Evert Shah MD LAB BLOOD ORDERABLES F inal Result Performing Organization Address City/[facility] Co de Phone Number [facility] Department [place] [address] from Last 3 Months or Most Recently Relevant to Health Maintenance Insurance MEDICARE SOLUTIONS MEDICARE SOLUTIONS [facility] CHOICE PLUS MEDICARE SOLUTIONS Advance Directives For more information, please contact: [phone] * Full Code (Latest Code Status on File) Date Activated Date Inactivated Comments 10/28/2018 2:35 PM 11/02/2018 8:10 PM Care Teams Rim Roller Operator Relationship Specialty Start Date End Date Megha Peoples MD [address] [place] [address] PCP - General 10/21/17
[2024-09-28 19:42] LABS: Basophils Absolute Auto 0.1 K/mm3 (0.0-0.1); Basophils Percent Auto 0.9 % (0.2-1.2); Eosinophils Absolute Auto 0.2 K/mm3 (0-0.3); Eosinophils Percent Auto 3.1 % (0-4.4); Hematocrit 44.5 % (42.0-52.0); Immature Granulocyte Percent A 1.8 % (0-0.5); Lymphocytes Absolute Auto 1.46 K/mm3 (0.9-3.2); Lymphocytes Percent Auto 26.4 % (18.3-44.2); Mean Corpuscular HGB Conc 33.7 g/dl (32-36); Mean Corpuscular Hemoglobin 31.4 pg (26-34); Mean Corpuscular Volume 93.1 fl (80-100); Mean Platelet Volume 10.9 fl (7.4-10.4); Monocytes Absolute Auto 0.3 K/mm3 (0.1-0.6); Monocytes Percent Auto 5.6 % (2.6-8.5); Neutrophils Absolute Auto 3.5 K/mm3 (1.3-6.7); Neutrophils Percent Auto 62.2 % (45.5-73.1); Platelet Count Result 209 k/mm3 (150-375); Red Blood Count 4.78 M/mm3 (4.6-6.20); White Blood Count 5.5 K/mm3 (4.5-10.0)
[2024-09-28 20:40] LABS: Alanine Aminotransferase 36 U/L (6-50); Albumin Level 4.3 g/dL (3.5-5.1); Alkaline Phosphatase 125 U/L (38-126); Anion Gap 11 mmol/L (4-12); Aspartate Amino Transferase 50 U/L (17-59); Bilirubin,Total 0.7 mg/dL (0.2-1.3); Blood Urea Nitrogen 35 mg/dL (9-20); Calcium 9.5 mg/dL (8.4-10.2); Carbon Dioxide 26 mmol/L (22-30); Chloride 101 mmol/L (98-107); Cholesterol 140 mg/dL (0-200); Estimated Glomerular Filt Rate > 60; Glucose 101 mg/dL (65-110); HDL Direct 35 mg/dL; Potassium 4.1 mmol/L (3.4-5.0); Sodium 138 mmol/L (137-145); Triglycerides 177 mg/dL (<150)
[2024-09-28 20:51] LABS: LDL Cholesterol Direct 77 mg/dL
[2024-09-28 21:09] LABS: Hemoglobin A1C 5.7 % (<5.7)
== END 2024-09-28 08:01 | disposition home or self-care (01) ==
LOC: ANHGOSHLAB 08:01
PROVIDERS: PCP Family Medicine; Visit Provider Nurse Practitioner Family
DX: F51.01 Primary insomnia (principal); I10 Essential (primary) hypertension; R73.01 Impaired fasting glucose; E55.9 Vitamin D deficiency, unspecified; E74.39 Other disorders of intestinal carbohydrate absorption; E78.2 Mixed hyperlipidemia; Z79.899 Other long term (current) drug therapy
CPT/HCPCS: 36415; 80053; 80061; 82306; 83036; 84443; 85025

== ENCOUNTER 2024-10-06 10:14 | Outpatient (CLI) | payer MEDICARE, SELFPAY ==
--- OUTSIDE RECORDS SUMMARY | 2024-10-06 10:39 | XMS_ITS | Clinical Summary ---
Author Organization [facility] Address [address] [place] [address] Care Team Providers Care Career And Transition Teacher Name Role Phone Megha Peoples MD Primary Care Provider [phone] Allergies Active Allergy Reactions Criticality Noted Date [...] on file Legal Sex Male 6:46 AM PLASMA CENTER TECHNICIAN Gender Identity Male 12/16/2018 1:16 PM CDT Sexual Orientation Straight 12/16/2018 1: 16 PM CDT Obstetrics History Last Filed Vital Signs Vital Sign Reading Time Taken Comments Blood Pressure 152/79 11/02/2018 11:10 AM PLASMA CENTER TECHNICIAN Pulse 66 11/02/2018 11:10 AM PLASMA CENTER TECHNICIAN Temperature 37.3 C (99.1 F) 11/02/2018 7:24 AM PLASMA CENTER TECHNICIAN Respiratory Rate 18 11/02/2018 11:10 AM PLASMA CENTER TECHNICIAN Oxygen Saturation 93% 11/02/2018 11:10 AM PLASMA CENTER TECHNICIAN Inhaled Oxygen Concentration - - Weight 95.3 [...] 05/05/2019, 03/01/2019 Medical Devices Implanted Type Area Brood Hatchery Manager Device Identifier Shelf Expiration Date Model / Serial / Lot Acuity [employer] Inc [id number] - [id number] - [id number] Implanted:Qty: 1 on 10/28/2018 by Evert Shah MD at [facility] N/A: Spine Lumbar Acuity [employer] Inc 08/10/2023 [id number] / Medtronic Sofamor Danek [id number] Infuse 18mm 26mm Absorbable Sponge Sterile Water Syringe Needle - [id number] Implanted:Qty: 1 on 10/28/2018 by Evert Shah MD at [facility] N/A: Spine Lumbar Medtronic Sofamor Danek 01/29/2019 [id number] / / [id number] Medtronic Sofamor Danek [id number] Mastergraft Matrix Block Extension Void Filler Substitute 10ml - [id number] Implanted:Qty: 1 on 10/28/2018 by Evert Shah MD at [facility] N/A: Spine Lumbar Medtronic Sofamor Danek [id number] / / Medtronic Sofamor Danek [id number] Cd Horizon Break Off Spinal Screw Set Titanium Nonsterile 5.5 Mm - [id number] Implanted:Qty: 6 on 10/28/2018 by Evert Shah MD at [facility] N/A: Spine Lumbar Medtronic Sofamor Danek [id number] / / Medtronic Sofamor Danek [id number] Solera 5.5mm 70mm Curve Omar Spinal Titanium Nonsterile - [id number] Implanted:Qty: 2 on 10/28/2018 by Evert Shah MD at [facility] N/A: Spine Lumbar Medtronic Sofamor Danek [id number] / / Medtronic Sofamor Danek [id number] Solera Cd Horizon 6.5mm 55mm Multiaxial Spine Screw Bone Cocr - [id number] Implanted:Qty: 6 on 10/28/2018 by Evert Shah MD at [facility] N/A: Spine Lumbar Medtronic Sofamor Danek [id number] / / Procedures Procedure Name Priority Date/Time Associated Diagnosis Comments LIPID PANEL Timed 10/29/2018 12:06 AM PLASMA CENTER TECHNICIAN HEMOGLOBIN A1C STAT 10/28/2018 5:06 PM PLASMA CENTER TECHNICIAN from Last 3 Months or Most Recently Relevant to Health Maintenance Results * (ABNORMAL) Lipid panel (10/29/2018 12:06 AM PLASMA CENTER TECHNICIAN) Cholesterol 114 30 - 199 mg/dL [facility] Comment: Interpretive Data Ages < or = 19 years Acceptable: <170 mg/dL Borderline high: 170-199 mg/dL High: >or= 200 mg/dL Ages > or = 20 years Desirable: <200 mg/dL Borderline high: 200-239 mg/dL High: >or= 240 mg/dL Literature References: 1. Expert Panel on Integrated Guidelines for Cardiovascular Health and Risk Reduction in Children and Adolescents. Pediatrics 2011;128:S213 2. NCEP Expert Panel. Circulation 2004;110:227 Current Interpretive Data was last revised on 2018. Triglycerides 74 <=149 mg/dL [facility] Comment: Interpretive Data Ages < or = 9 years Acceptable: <75 mg/dL Borderline high: 75-99 mg/dL High: >or= 100 mg/dL Ages 10 to 20 years Acceptable: <90 mg/dL Borderline high: 90-129 mg/dL High: >or= 130 mg/dL Ages > or = 20 years Desirable: <150 mg/dL Borderline high: 150-199 mg/dL High: 200-499 mg/dL Very high: >or= 499 mg/dL Literature References: 1. Expert Panel on Integrated Guidelines for Cardiovascular Health and Risk Reduction in Children and Adolescents. Pediatrics 2011;128:S213 2. NCEP Expert Panel. Circulation 2004;110:227 Current Interpretive Data was last revised on 2018. HDL 34(L) >=40 mg/dL [facility] Comment: Interpretive Data Ages < or = 19 years Acceptable: >45 mg/dL Borderline low: 40-45 mg/dL Low: <40 mg/dL Ages > or = 20 years Desirable: >or= 60 mg/dL Low: <40 mg/dL Literature References: 1. Expert Panel on Integrated Guidelines for Cardiovascular Health and Risk Reduction in Children and Adolescents. Pediatrics 2011;128:S213 2. NCEP Expert Panel. Circulation 2004;110:227 Current Interpretive Data was last revised on 2018. LDL, calculated 65 <=129 mg/dL [facility] Comment: Interpretive Data Ages < or = 19 years Acceptable: <110 mg/dL Borderline high: 110-129 mg/dL High: >or= 130 mg/dL Ages > or = 20 years Optimal: <100 mg/dL Near optimal: 100-129 mg/dL Borderline high: 130-159 mg/dL High: >160 mg/dL Literature References: 1. Expert Panel on Integrated Guidelines for Cardiovascular Health and Risk Reduction in Children and Adolescents. Pediatrics 2011;128:S213 2. NCEP Expert Panel. Circulation 2004;110:227 Current Interpretive Data was last revised on 2018. Non-HDL Cholesterol 80 mg/dL [facility] Comment: Interpretive Data Ages < or = 19 years Acceptable: <120 mg/dL Borderline high: 120-144 mg/dL High: >145 mg/dL Ages > or = 20 years When triglycerides are >200 mg/dL, Non-HDL cholesterol is a secondary target of therapy with treatment goals that are 30 mg/dL greater than the LDL cholesterol target. Literature References: 1. Expert Panel on Integrated Guidelines for Cardiovascular Health and Risk Reduction in Children and Adolescents. Pediatrics 2011;128:S213 2. NCEP Expert Panel. Circulation 2004;110:227 Current Interpretive Data was last revised on 2018. Chol/HDL ratio 3 [facility] Blood specimen (specimen) 10/29/2018 12:06 AM PLASMA CENTER TECHNICIAN 10/29/2018 12:18 AM PLASMA CENTER TECHNICIAN Narrative [facility] - 10/29/2018 9:46 AM PLASMA CENTER TECHNICIAN Evert Shah MD LAB BLOOD ORDERABLES F inal Result Performing Organization Address [facility] de Phone Number [facility] [place] [address] * Hemoglobin A1c (10/28/2018 5:06 PM PLASMA CENTER TECHNICIAN) Hgb A1C 5.6 4.0 - 5.6 % [facility] Estimated Average Glucose 114 mg/dL [facility] Comment: The ADA recommends reporting an estimated Average Glucose (eAG) with all Hemoglobin A1c results using the equation derived from a study of 507 normal and diabetic adults. Minority populations were underrepresented and children were not included. (Diabetes Care 31:2107-9507, 2008). The eAG is not equivalent to a fasting glucose. Blood specimen (specimen) 10/28/2018 5:06 PM PLASMA CENTER TECHNICIAN 10/28/2018 5:52 PM PLASMA CENTER TECHNICIAN Narrative [facility] - 10/29/2018 5:53 AM PLASMA CENTER TECHNICIAN Evert Shah MD LAB BLOOD ORDERABLES F inal Result Performing Organization Address [facility] de Phone Number [facility] [place] [address] from Last 3 Months or Most Recently Relevant to Health Maintenance Insurance MEDICARE SOLUTIONS [facility] MEDICARE Address: [address] [address] [place] [address] MEDICARE SOLUTIONS [facility] CHOICE PLUS [facility] HMO/PPO Address: [facility] [address] [place] [address] MEDICARE SOLUTIONS Advance Directives For more information, please contact: [phone] * Full Code (Latest Code Status on File) Date Activated Date Inactivated Comments 10/28/2018 2:35 PM 11/02/2018 8:10 PM Care Teams Career And Transition Teacher Relationship Specialty Start Date End Date Megha Peoples MD [address] [place] [address] PCP - General 10/21/17
--- OUTSIDE RECORDS SUMMARY | 2024-10-06 10:39 | XMS_ITS | Referral Summary ---
Author Organization [facility] Address [address] [place] [address] Care Team Providers Care Director Of Student Life Name Role Phone Megha Peoples MD Primary Care Provider [phone] Allergies Active Allergy Reactions Criticality Noted Date [...] on file Legal Sex Male 6:46 AM ROUGE PRESSER Gender Identity Male 12/16/2018 1:16 PM CDT Sexual Orientation Straight 12/16/2018 1: 16 PM CDT Last Filed Vital Signs Vital Sign Reading Time Taken Comments Blood Pressure 152/79 11/02/2018 11:10 AM ROUGE PRESSER Pulse 66 11/02/2018 11:10 AM ROUGE PRESSER Temperature 37.3 C (99.1 F) 11/02/2018 7:24 AM ROUGE PRESSER Respiratory Rate 18 11/02/2018 11:10 AM ROUGE PRESSER Oxygen Saturation 93% 11/02/2018 11:10 AM ROUGE PRESSER Inhaled Oxygen Concentration - - Weight 95.3 kg (210 lb) 01/20/2024 1:01 PM CDT Height 177.8 cm (5' 10 ) 01/20/2024 1:01 PM CDT Body Mass Index 30.13 01/20/2024 1:01 PM CDT Plan of Treatment Not on file Medical Devices Implanted Type Area Lever Operator Device Identifier Shelf Expiration Date Model / Serial / Lot Acuity [employer] Inc [id number] - [id number] - [id number] Implanted:Qty: 1 on 10/28/2018 by Evert Shah MD at [facility] N/A: Spine Lumbar [employer] 08/10/2023 [id number] / [id number] / Medtronic Sofamor Danek [id number] Infuse 18mm 26mm Absorbable Sponge Sterile Water Syringe Needle - [id number] Implanted:Qty: 1 on 10/28/2018 by Evert Shah MD at [facility] N/A: Spine Lumbar Medtronic Sofamor Danek 01/29/2019 [id number] / / [id number] Medtronic Sofamor Danek [id number] Mastergraft Matrix Block Extension Void Filler Substitute 10ml - [id number] Implanted:Qty: 1 on 10/28/2018 by Evert Shah MD at [facility] N/A: Spine Lumbar Medtronic Sofamor Danek [id number] / / Medtronic Sofamor Danek [id number] Cd Horizon Break Off Spinal Screw Set Titanium Nonsterile 5.5 Mm - [id number] Implanted:Qty: 6 on 10/28/2018 by Evert Shah MD at [facility] N/A: Spine Lumbar Medtronic Sofamor Danek [id number] / / Medtronic Sofamor Danek [id number] Solera 5.5mm 70mm Curve Omar Spinal Titanium Nonsterile - [id number] Implanted:Qty: 2 on 10/28/2018 by Evert Shah MD at [facility] N/A: Spine Lumbar Medtronic Sofamor Danek [id number] / / Medtronic Sofamor Danek [id number] Solera Cd Horizon 6.5mm 55mm Multiaxial Spine Screw Bone Cocr - [id number] Implanted:Qty: 6 on 10/28/2018 by Evert Shah MD at [facility] N/A: Spine Lumbar Medtronic Sofamor Danek [id number] / / Procedures Procedure Name Priority Date/Time Associated Diagnosis Comments LIPID PANEL Timed 10/29/2018 12:06 AM ROUGE PRESSER HEMOGLOBIN A1C STAT 10/28/2018 5:06 PM ROUGE PRESSER from Last 3 Months or Most Recently Relevant to Health Maintenance Results * (ABNORMAL) Lipid panel (10/29/2018 12:06 AM ROUGE PRESSER) Cholesterol 114 30 - 199 mg/dL [facility] Comment: Interpretive Data Ages < or = [...] on 2018. Triglycerides 74 <=149 mg/dL [facility] Comment: Interpretive Data Ages < or = [...] on 2018. HDL 34(L) >=40 mg/dL [facility] Comment: Interpretive Data Ages < or = 19 years Acceptable: >45 mg/dL Borderline low: 40-45 mg/dL Low: <40 mg/dL Ages > or = 20 years Desirable: >or= 60 mg/dL Low: <40 mg/dL Literature References: 1. Expert Panel on Integrated Guidelines for Cardiovascular Health and Risk Reduction in Children and Adolescents. Pediatrics 2011;128:S213 2. NCEP Expert Panel. Circulation 2003;110:227 Current Interpretive Data was last revised on 2018. LDL, calculated 65 <=129 mg/dL [facility] Comment: Interpretive Data Ages < or = [...] revised on 2018. Non-HDL Cholesterol 80 mg/dL [facility] Comment: Interpretive Data Ages < or = [...] last revised on 2018. Chol/HDL ratio 3 [facility] Blood specimen (specimen) 10/29/2018 12:06 AM ROUGE PRESSER 10/29/2018 12:18 AM ROUGE PRESSER [facility]ative [facility] - 10/29/2018 9:46 AM ROUGE PRESSER Evert Shah MD LAB BLOOD ORDERABLES F inal Result Performing Organization Address [facility] de Phone Number [facility] [place] [address] * Hemoglobin A1c (10/28/2018 5:06 PM ROUGE PRESSER) Hgb A1C 5.6 4.0 - 5.6 % [facility] Estimated Average Glucose 114 mg/dL [facility] Comment: The ADA recommends reporting an estimated Average Glucose (eAG) with all Hemoglobin A1c results using the equation derived from a study of 507 normal and diabetic adults. Minority populations were underrepresented and children were not included. (Diabetes Care 31:4864-1952, 2008). The eAG is not equivalent to a fasting glucose. Blood specimen (specimen) 10/28/2018 5:06 PM ROUGE PRESSER 10/28/2018 5:52 PM ROUGE PRESSER Narrative [facility] - 10/29/2018 5:53 AM ROUGE PRESSER Evert Shah MD LAB BLOOD ORDERABLES F inal Result Performing Organization Address [facility] de Phone Number [facility] [place] [address] from Last 3 Months or Most Recently Relevant to Health Maintenance Insurance MED[employer]IONS Member Subscriber Plan / Payer (Ef fective 2017-Present) Name:Marbin Balderrama Luann Relation to Subscriber:Self Name:Marbin Balderrama Payer ID:[id number] (NAIC) Type:[employer] MEDICARE Address: [place] [id number] [place] [id number] MEDICARE SOLUTIONS Member Subscriber Plan / Payer (Ef fective 2017-Present) Name:Marbin Balderrama Luann Relation to Subscriber:Self Name:Marbin Balderrama Payer ID:[id number] (NAIC) Type:[facility] MEDIC[facility] Address: [place] [id number] [place] [id number] [facility] CHOICE PLUS MEDICARE SOLUTIONS Advance Directives For more information, please contact: [phone] * Full Code (Latest Code Status on File) Date Activated Date Inactivated Comments 10/28/2018 2:35 PM 11/02/2018 8:10 PM Care Teams Director Of Student Life Relationship Specialty Start Date End Date Megha Peoples MD [address] [place] [address] PCP - General 10/21/17
--- OUTSIDE RECORDS SUMMARY | 2024-10-06 10:39 | XMS_ITS | Clinical Summary ---
Author Organization [facility] Address [address] [place] [address] Care Team Providers Care Financial Institution Vice President Name Role Phone Unavailable Primary Care Provider [...]
[2024-10-06 15:14] LABS: Prostate Specific Antigen 0.6 ng/mL (< OR = 4.0)
== END 2024-10-06 10:15 | disposition home or self-care (01) ==
LOC: ANHGOSHLAB 10:16
PROVIDERS: PCP Family Medicine; Visit Provider Nurse Practitioner Family
DX: Z12.5 Encounter for screening for malignant neoplasm of prostate (principal)
CPT/HCPCS: 36415; 84153; G0103

== ENCOUNTER 2025-05-23 08:31 | Outpatient (CLI) | payer MEDICARE, SELFPAY ==
--- OUTSIDE RECORDS SUMMARY | 2025-05-23 08:49 | XMS_ITS | Clinical Summary ---
Author Organization [facility] Address [address] [place] [address] Care Team Providers Care Lmsw Name Role Phone Megha Peoples MD Primary Care Provider [phone] Allergies Active Allergy Reactions Criticality Noted Date [...] on file Legal Sex Male 6:46 AM PROJECT MANAGER PROCESS DEVELOPMENT Gender Identity Male 12/16/2018 1:16 PM CDT Sexual Orientation Straight 12/16/2018 1: 16 PM CDT Obstetrics History Last Filed Vital Signs Vital Sign Reading Time Taken Comments Blood Pressure 152/79 11/02/2018 11:10 AM PROJECT MANAGER PROCESS DEVELOPMENT Pulse 66 11/02/2018 11:10 AM PROJECT MANAGER PROCESS DEVELOPMENT Temperature 37.3 C (99.1 F) 11/02/2018 7:24 AM PROJECT MANAGER PROCESS DEVELOPMENT Respiratory Rate 18 11/02/2018 11:10 AM PROJECT MANAGER PROCESS DEVELOPMENT Oxygen Saturation 93% 11/02/2018 11:10 AM PROJECT MANAGER PROCESS DEVELOPMENT Inhaled Oxygen Concentration - - Weight 95.3 kg (210 lb) 01/20/2024 1:01 PM CDT Height 177.8 cm (5' 10) 01/20/2024 1:01 PM CDT Body Mass Index 30.13 01/20/2024 1:01 PM CDT Plan of Treatment Health Maintenance Due Date Last Done Comments Albumin Creatinine Ratio, Urine 1950 Colon Cancer Screening-Colonoscopy 1950 Depression Screening 1951 Fall Risk Assessment 1950 Hepatitis C Screening 1950 eGFR 1950 Dilated Eye Exam 1951 Foot Exam 1950 DTaP/Tdap/Td Vaccine (1 - Tdap) 1962 Hepatitis B Screening 1969 Pneumococcal vaccine 65+ (1 of 2 - PCV) 1970 Abdominal Aortic Aneurysm (AAA) Screen 2016 Well Visit 65+ 2016 Hemoglobin A1C 04/27/2019 10/28/2018 Lipid Panel 10/30/2019 10/29/2018 Covid-19 Vaccine (2 - season) 05/01/202503/2021 Influenza Vaccine (#1) 2025 05/10/2019, 2017 Zoster Vaccine Completed 05/05/2019, 03/01/2019 Medical Devices Implanted Type Area Transfer Worker Device Identifier Shelf Expiration Date Model / Serial / Lot [employer] Inc [id number] - [id number] - [id number] Implanted:Qty: 1 on 10/28/2018 by Evert Shah MD at [facility] N/A: Spine Lumbar [employer] 08/10/2023 [id number] / [id number] / Medtronic Sofamor Danek [id number] Infuse 18mm 26mm Absorbable Sponge Sterile Water Syringe Needle - [id number] Implanted:Qty: 1 on 10/28/2018 by Evert Shah MD at [facility] N/A: Spine Lumbar Medtronic Sofamor Danek 01/29/2019 [id number] / / [id number] Medtronic Sofamor Danek [id number] Mastergraft Matrix Block Extension Void Filler Substitute 10ml - [id number] Implanted:Qty: 1 on 10/28/2018 by Evert Shah MD at [facility] N/A: Spine Lumbar Medtronic Sofamor Danek [id number] / / Medtronic Sofamor Danek [id number] Cd Horizon Break Off Spinal Screw Set Titanium Nonsterile 5.5 Mm - [id number] Implanted:Qty: 6 on 10/28/2018 by Evert Shah MD at [facility] N/A: Spine Lumbar Medtronic Sofamor Danek [id number] / / Medtronic Sofamor Danek [id number] Solera 5.5mm 70mm Curve Omar Spinal Titanium Nonsterile - [id number] Implanted:Qty: 2 on 10/28/2018 by Evert Shah MD at [facility] N/A: Spine Lumbar Medtronic Sofamor Danek [id number] / / Medtronic Sofamor Danek [id number] Solera Cd Horizon 6.5mm 55mm Multiaxial Spine Screw Bone Cocr - [id number] Implanted:Qty: 6 on 10/28/2018 by Evert Shah MD at [facility] N/A: Spine Lumbar Medtronic Sofamor Danek [id number] / / Procedures Procedure Name Priority Date/Time Associated Diagnosis Comments LIPID PANEL Timed 10/29/2018 12:06 AM PROJECT MANAGER PROCESS DEVELOPMENT HEMOGLOBIN A1C STAT 10/28/2018 5:06 PM PROJECT MANAGER PROCESS DEVELOPMENT from Last 3 Months or Most Recently Relevant to Health Maintenance Results * (ABNORMAL) Lipid panel (10/29/2018 12:06 AM PROJECT MANAGER PROCESS DEVELOPMENT) Cholesterol 114 30 - 199 mg/dL [facility] Comment: Interpretive Data Ages < or = [...] on 2018. Triglycerides 74 <=149 mg/dL [facility] Comment: Interpretive Data Ages < or = [...] revised on 2018. HDL 34(L) >=40 mg/dL [facility] Comment: Interpretive Data Ages < or = [...] on 2018. LDL, calculated 65 <=129 mg/dL [facility] Comment: Interpretive Data Ages < or [...] revised on 2018. Non-HDL Cholesterol 80 mg/dL [facility] Comment: Interpretive Data Ages < or [...] last revised on 2018. Chol/HDL ratio 3 [facility] Blood specimen (specimen) 10/29/2018 12:06 AM PROJECT MANAGER PROCESS DEVELOPMENT 10/29/2018 12:18 AM PROJECT MANAGER PROCESS DEVELOPMENT Narrative [facility] - 10/29/2018 9:46 AM PROJECT MANAGER PROCESS DEVELOPMENT Evert Shah MD LAB BLOOD ORDERABLES F inal Result Performing Organization Address [place] de Phone Number [facility] Department [place] [address] * Hemoglobin A1c (10/28/2018 5:06 PM PROJECT MANAGER PROCESS DEVELOPMENT) Hgb A1C 5.6 4.0 - 5.6 % [facility] Estimated Average Glucose 114 mg/dL [facility] Comment: The ADA recommends reporting an estimated Average Glucose (eAG) with all Hemoglobin A1c results using the equation derived from a study of 507 normal and diabetic adults. Minority populations were underrepresented and children were not included. (Diabetes Care 31:3247-5481, 2008). The eAG is not equivalent to a fasting glucose. Blood specimen (specimen) 10/28/2018 5:06 PM PROJECT MANAGER PROCESS DEVELOPMENT 10/28/2018 5:52 PM PROJECT MANAGER PROCESS DEVELOPMENT Narrative [facility] - 10/29/2018 5:53 AM PROJECT MANAGER PROCESS DEVELOPMENT Evert Shah MD LAB BLOOD ORDERABLES F inal Result Performing Organization Address [place] de Phone Number [facility] Department [place] [address] from Last 3 Months or Most Recently Relevant to Health Maintenance Insurance [facility] MEDICARE ADVANTAGE [facility] Address: [address] [address] [place] [address] [facility] MEDICARE ADVANTAGE [facility] CHOICE PLUS [facility] HMO/PPO Address: [facility] [address] [place] [address] [facility] MEDICARE ADVANTAGE [facility] MEDIC[facility] Address: [facility] [address] [place] [address] Advance Directives For more information, please contact: [phone] * Full Code (Latest Code Status on File) Date Activated Date Inactivated Comments 10/28/2018 2:35 PM 11/02/2018 8:10 PM Care Teams Lmsw Relationship Specialty Start Date End Date Megha Peoples MD [address] [place] [address] PCP - General 10/21/17
--- OUTSIDE RECORDS SUMMARY | 2025-05-23 08:49 | XMS_ITS | Clinical Summary ---
Author Organization [facility] Address [address] [place] [address] Care Team Providers Care Gas Fitter Name Role Phone Unavailable Primary Care Provider [...] Virus (HCV) Screening 1950 TdaP Immunization 1951 Cologuard 1996 Colonoscopy 1996 Colorectal Cancer Screening 1996 Immunochemical Fecal Occult Blood 1996 Pneumococcal Immunization (5 0+ years) (1 of 1 - PCV) 2001 Influenza Immunization (#1) 05/01/202505/01, 06/15/2018 SARS-COV-2 Immunization ( season) 2025 06/07/2021, 11/03/2020, 10/11/2020 Respiratory Syncytial Virus (RSV) Immunization (Adult) (1 - 1-dose 75+ series) 2026 Zoster Immunization Completed 05/05/2019, 03/01/2019 Hepatitis B Immunization Aged Out No longer eligible based on patient's age to complete this topic Human Papillomavirus (HPV) Immunization Aged Out No longer eligible b ased on patient's age to complete this topic Meningococcal Immunization (ACWY) Aged Out No longer eligible b ased on patient's age to complete this topic Rotavirus Immunization Aged Out No lo nger eligible based on patient's age to complete this topic
[2025-05-23 11:11] LABS: Alanine Aminotransferase 31 U/L (6-50); Albumin Level 4.4 g/dL (3.5-5.1); Alkaline Phosphatase 116 U/L (38-126); Anion Gap 10 mmol/L (4-12); Aspartate Amino Transferase 44 U/L (17-59); Bilirubin,Total 0.7 mg/dL (0.2-1.3); Blood Urea Nitrogen 30 mg/dL (9-20); Calcium 9.5 mg/dL (8.4-10.2); Carbon Dioxide 24 mmol/L (22-30); Chloride 103 mmol/L (98-107); Estimated Glomerular Filt Rate > 60; Glucose 106 mg/dL (65-110); Potassium 4.1 mmol/L (3.4-5.0); Sodium 137 mmol/L (137-145); Total Protein 7.4 g/dL (6.3-8.2)
[2025-05-23 12:03] LABS: MALB Creatinine Ratio 15.5 mg/g (0-30)
[2025-05-23 13:51] LABS: Hemoglobin A1C 5.4 % (<5.7)
== END 2025-05-23 08:32 | disposition home or self-care (01) ==
PROVIDERS: PCP Family Medicine; Visit Provider Family Medicine
DX: E78.5 Hyperlipidemia, unspecified (principal); R73.03 Prediabetes; E74.39 Other disorders of intestinal carbohydrate absorption
CPT/HCPCS: 36415; 80053; 82043; 83036